=== PATIENT | male | born 1985 | race Caucasian/White ===

== ENCOUNTER 2020-02-15 10:44 | Inpatient (IN) | payer OTHER ==
--- NOTE | 2020-02-15 11:02 | BHS.RME ---
Physical/Psych/Mental Status - Behavior General Behavior: Increased activity (restlessness, agitation) Eye Contact: Normal - Cooperativeness Cooperativeness: Cooperative - Thinking Thought Processes: Tight, Logical, Goal Directed - Physical Health Problems Is patient presently having any pain?: No Does patient presently have any injuries (include location): No Does patient currently have a fever: No Is patient : No CIWA Nausea/Vomitin-No Nausea/No Vomiting Muscle Tremors: 1-None Visible, but [place] Anxiety: 4-Mod. Anxious/Guarded Agitation: 4-Moderately Restless Paroxysmal Sweats: 4-Forehead w/Sweat Beads Orientation: 0-Oriented Tacttile Disturbances: 0-None Auditory Disturbances: 0-None Visual Disturbances: 0-None Headache: 0-None Present CIWA-Ar Total Score: 13
--- NOTE | 2020-02-15 11:18 | HP ---
CIWA Score Nausea/Vomitin-No Nausea/No Vomiting Muscle Tremors: 1-None Visible, but [place] Anxiety: 4-Mod. Anxious/Guarded Agitation: 4-Moderately Restless Paroxysmal Sweats: 4-Forehead w/Sweat Beads Orientation: 0-Oriented Tacttile Disturbances: 0-None Auditory Disturbances: 0-None Visual Disturbances: 0-None Headache: 0-None Present CIWA-Ar Total Score: 13 - Admission Criteria OASAS Guidelines: Admission for Medically Managed Detox: Requires at least one of the followin. CIWA greater than 12 2. Seizures within the past 24 hours 3. Delirium tremens within the past 24 hours 4. Hallucinations within the past 24 hours 5. Acute intervention needed for co occurring medical disorder 6. Acute intervention needed for co occurring psychiatric disorder 7. Severe withdrawal that cannot be handled at a lower level of care (continued vomiting, continued diarrhea, abnormal vital signs) requiring intravenous medication and/or fluids 8. Admitting History and Physical - Admission Chief Complaint: Mr. Alaniz is a 35 yo gentleman who presents to [facility] requesting admission after a recent relapse to alcohol use. History of Present Illness: Mr. Alaniz is a 35 yo gentleman who presents to [facility] requesting admission after a recent relapse to alcohol use. He was at [facility] yesteday, given Librium but told he would not be admitted. PMH: none PSH: none Psych: depression, anxiety, ADD (Wellbutrin 300 mg QD, taken yesterday, Adderal 30 mg QD, Gabapentin 400 mg bid) SOC: lives with Joaquina Chin Mandated by court to treatment The patient was sober for 6 months and then relapsed 2 months ago. History Source: Patient Limitations to Obtaining History: No Limitations Admission [facility] Allergies/Adverse Reactions: Allergies Allergy/AdvReac Type Severity Reaction Status Date / Time Fish Containing Products Allergy Hives Verified 02/15/20 11:17 No Known Drug Allergies Allergy Verified 02/15/20 11:17 Exam Limitations: No Limitations - Ebola screening Have you traveled outside of the country in the last 21 days: No Have you been sick,other than usual withdrawal symptoms: No Do you have a fever: No - Review of Systems Constitutional: Loss of Appetite EENT: reports: Blurred Vision (has glasses, not with him today) Respiratory: reports: No Symptoms reported Cardiac: reports: No Symptoms Reported GI: reports: No Symptoms Reported : reports: No Symptoms Reported Musculoskeletal: reports: No Symptoms Reported Integumentary: reports: Other (scrapes on feet from sandles) Endocrine: reports: No Symptoms Reported Hematology: reports: No Symptoms Reported Psychiatric: reports: Anxious Patient History - Smoking Cessation Smoking history: Current every day smoker Have you smoked in the past 12 months: Yes Aproximately how many cigarettes per day: 30 Hx Chewing Tobacco Use: No Initiated information on smoking cessation: Yes 'Breaking Loose' booklet given: 02/15/20 - Substances abused Alcohol Substance route: Oral Frequency: Daily Amount used: 2 pints Vodka Age of first use: 13 Date of last use: 02/15/20 Marijuana/Hashish Substance route: Smoking Amount used: one joint Age of first use: 13 Date of last use: 02/15/20 Other Other (specify): Tylenol with Codeine Amount used: 1 Age of first use: 35 Date of last use: 02/14/20 Admission Physical Exam [facility] - Physical General Appearance: Yes: No Apparent Distress, Nourished HEENTM: Yes: EOMI, Hearing grossly Normal, Normocephalic, Normal Voice Respiratory: Yes: Lungs Clear, Normal Breath Sounds Neck: Yes: Within Normal Limits Breast: Yes: Breast Exam Deferred Cardiology: Yes: Regular Rhythm, Regular Rate Abdominal: Yes: Normal Bowel Sounds, Non Tender, Flat, Soft Back: Yes: Normal Inspection Musculoskeletal: Yes: Within Normal Limits, Gait Steady Extremities: Yes: Normal Inspection, Non-Tender Neurological: Yes: Alert, Normal Mood/Affect, Normal Response Integumentary: Yes: Other (superficial scratches bilateral feet/ankle, pt attributes to new sandles) - Diagnostic (1) Alcohol dependence with withdrawal, uncomplicated Current Visit: Yes Status: Acute (2) Nicotine dependence Current Visit: Yes Status: Acute (3) ADD (attention deficit disorder) Current Visit: Yes Status: Chronic (4) Cannabis abuse Current Visit: Yes Status: Acute Cleared for Admission [facility] - Detox or Rehab [facility] Level of Care: Medically Managed Detox Regimen/Protocol: Librium Inpatient Rehab Admission - Rehab Decision to Admit Inpatient rehab admission?: No
[2020-02-15 11:31] VITALS: BMI 24.5
[2020-02-15] MEDS ORDERED: ACETAMINOPHEN 325 MG TABLET (FP) PO PRN ×2 (11:34)
[2020-02-15] MEDS ORDERED: MENTHOL/PHENOL 1 EACH UD MM PRN (11:34)
[2020-02-15] MEDS ORDERED: MAG HYDROX/AL HYDROX/SIMETH 30 ML UNIT-DOSE CUP PO PRN (11:34)
[2020-02-15] MEDS ORDERED: BISMUTH SUBSALICYLATE 262 MG/15 ML BTL PO PRN (11:34)
[2020-02-15] MEDS ORDERED: ONDANSETRON *ODT* 4 MG TABLET SL PRN (11:34)
[2020-02-15] MEDS ORDERED: MAGNESIUM CITRATE 300 ML BOTTLE PO PRN (11:34)
[2020-02-15] MEDS ORDERED: IBUPROFEN 400 MG TABLET (FP) PO PRN (11:34)
[2020-02-15] MEDS ORDERED: MAGNESIUM HYDROX 2400MG/30ML ORAL SUSPENSION 30 ML CUP PO PRN (11:34)
[2020-02-15] MEDS ORDERED: TUBERCULIN PPD 5 TU/0.1ML VIAL ID ONE (12:30)
[2020-02-15] MEDS: chlordiazePOXIDE HCL 25 MG CAPSULE PO PRN (12:36)
[2020-02-15] MEDS: PRENATAL VITAMINS W/ FOLIC ACID TABLET (FP) PO SCH (12:38)
[2020-02-15] MEDS: NICOTINE 21 MG/24 HOURS TOPICAL PATCH TD SCH (12:38)
[2020-02-15] MEDS: NICOTINE POLACRILEX 2 MG GUM BUC PRN (12:43)
[2020-02-15] MEDS: hydrOXYzine PAMOATE 25 MG CAPSULE (FP) PO SCH ×3 (13:45→22:39)
[2020-02-15 14:54] LABS: HEMATOCRIT 41.7 % (35.4-49); HEMOGLOBIN 14.2 GM/dL (11.7-16.9); MCH 31.9 pg (25.7-33.7); MEAN CELL VOLUME 93.8 fl (80-96); MEAN PLT VOLUME 8.7 fl (7.5-11.1); PLATELET COUNT 319 K/MM3 (134-434); RBC 4.45 M/mm3 (4.00-5.60); RDW 13.8 % (11.9-15.9); WHITE BLOOD COUNT 7.9 K/mm3 (4.0-10.0)
[2020-02-15 15:10] LABS: ALBUMIN 4.1 g/dl (3.4-5.0); BILIRUBIN,TOTAL 0.3 mg/dL (0.2-1); BLOOD UREA NITROGEN 13.8 mg/dL (7-18); CREATININE 0.8 mg/dL (0.55-1.3); POTASSIUM 4.2 mmol/L (3.5-5.1); TOT PROT 7.5 g/dl (6.4-8.2)
[2020-02-15 15:36] LABS: CALCIUM 9.7 mg/dL (8.5-10.1)
--- NOTE | 2020-02-15 17:41 | EKG ---
Test Reason : Blood Pressure : / mmHG Vent. Rate : 082 BPM Atrial Rate : 082 BPM P-R Int : 124 ms QRS Dur : 108 ms QT Int : 360 ms P-R-T Axes : 052 068 062 degrees QTc Int : 420 ms NORMAL SINUS RHYTHM NORMAL ECG NO PREVIOUS ECGS AVAILABLE Confirmed by WALTER BARRAZA MD ([id number]) on 02/15/2020 5:40:44 PM Referred By: Confirmed By:WALTER BARRAZA MD
[2020-02-15] MEDS: chlordiazePOXIDE HCL 25 MG CAPSULE PO SCH ×2 (17:59→22:38)
[2020-02-15] MEDS: THIAMINE HCL 100 MG TABLET (FP) PO SCH (22:38)
[2020-02-15] MEDS: MELATONIN 5 MG TABLETS PO SCH (22:38)
[2020-02-15] MEDS: METHOCARBAMOL 500 MG TABLET PO PRN (22:39)
[2020-02-16] MEDS: chlordiazePOXIDE HCL 25 MG CAPSULE PO SCH ×4 (06:45→22:04)
[2020-02-16] MEDS: hydrOXYzine PAMOATE 25 MG CAPSULE (FP) PO SCH (06:45)
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
--- NOTE | 2020-02-16 09:54 | PN ---
S CIWA - CIWA Score Nausea/Vomitin-No Nausea/No Vomiting Muscle Tremors: 3 Anxiety: 4-Mod. Anxious/Guarded Agitation: 4-Moderately Restless Paroxysmal Sweats: 1-Minimal Palms Moist Orientation: 0-Oriented Tacttile Disturbances: 0-None Auditory Disturbances: 0-None Visual Disturbances: 0-None Headache: 0-None Present CIWA-Ar Total Score: 12 BHS Progress Note (SOAP) Subjective: Pt is a 35 y/o male admitted to detox for alcohol w/s. c/o anxiety,tremors "no sleep at all" last night, nasal congestion,on/ff-hx environmental allergy. Objective: 02/16/20 09:53 Vital Signs 02/16/20 02/16/20 02/16/20 03:30 05:00 06:35 Temperature 97.5 F L Pulse Rate 72 Respiratory 18 18 Rate Blood Pressure 110/66 O2 Sat by Pulse 95 Oximetry (%) Laboratory Tests 02/15/20 02/15/20 02/15/20 11:00 11:50 11:50 WBC 7.9 RBC 4.45 Hgb 14.2 Hct 41.7 MCV 93.8 MCH 31.9 MCHC 34.0 RDW 13.8 Plt Count 319 MPV 8.7 Sodium 138 Potassium 4.2 Chloride 107 Carbon Dioxide 23 Anion Gap 8 BUN 13.8 Creatinine 0.8 Est GFR (CKD-EPI)AfAm 132.27 Est GFR (CKD-EPI)NonAf 114.12 Random Glucose 73 L Calcium 9.7 Total Bilirubin 0.3 AST 19 ALT 35 Alkaline Phosphatase 96 Total Protein 7.5 Albumin 4.1 Syphilis Serology Non-reactive covid -19 result pending Assessment: 02/16/20 09:53 withdrawal sx Plan: continue detox increase po fluids maintain safety f/u with psych consult today.
[2020-02-16] MEDS: NICOTINE 21 MG/24 HOURS TOPICAL PATCH TD SCH (10:33)
[2020-02-16] MEDS: GABAPENTIN 400 MG CAPSULE PO SCH ×2 (10:35→22:04)
[2020-02-16] MEDS: PRENATAL VITAMINS W/ FOLIC ACID TABLET (FP) PO SCH (10:35)
[2020-02-16] MEDS: NICOTINE POLACRILEX 2 MG GUM BUC PRN ×2 (10:36→17:46)
[2020-02-16] MEDS: chlordiazePOXIDE HCL 25 MG CAPSULE PO PRN (14:16)
[2020-02-16] MEDS: hydrOXYzine PAMOATE 50 MG CAPSULE (FP) PO PRN (22:04)
[2020-02-16] MEDS: MELATONIN 5 MG TABLETS PO SCH (22:04)
[2020-02-16] MEDS: THIAMINE HCL 100 MG TABLET (FP) PO SCH (22:04)
[2020-02-16 22:43] LABS: PH,URINE 6.5 (5.0-8.0); URINE APPEARANCE CLEAR; URINE BILIRUBIN NEGATIVE (NEGATIVE); URINE COLOR YELLOW; URINE GLUCOSE (UA) NEGATIVE (NEGATIVE); URINE KETONE NEGATIVE (NEGATIVE); URINE LEUK ESTERASE NEGATIVE (NEGATIVE); URINE NITRITE NEGATIVE (NEGATIVE); URINE PROTEIN NEGATIVE (NEGATIVE); URINE UROBILINOGEN 0.2 mg/dL (0.2-1.0)
[2020-02-17] MEDS: chlordiazePOXIDE HCL 25 MG CAPSULE PO SCH ×4 (06:23→22:17)
[2020-02-17] MEDS: NICOTINE POLACRILEX 2 MG GUM BUC PRN ×3 (06:26→12:46)
[2020-02-17] MEDS: PRENATAL VITAMINS W/ FOLIC ACID TABLET (FP) PO SCH (10:07)
[2020-02-17] MEDS: GABAPENTIN 400 MG CAPSULE PO SCH ×2 (10:07→17:51)
[2020-02-17] MEDS: hydrOXYzine PAMOATE 50 MG CAPSULE (FP) PO PRN ×2 (10:08→22:17)
[2020-02-17] MEDS: NICOTINE 21 MG/24 HOURS TOPICAL PATCH TD SCH (10:08)
[2020-02-17] MEDS: METHOCARBAMOL 500 MG TABLET PO PRN ×2 (12:45→22:17)
--- NOTE | 2020-02-17 13:28 | PN ---
[facility] Progress Note Note: Psychiatric nurse practitioner note: Call received by RN Alexus stating that patient is requesting to take Gabapentin BID 400mg @0600+1800. Patient seen by Dr. Luciano and was ordered Gabapentin 400mg BID (1000+2200). Will d/c current order and order Gabapentin as requested by patient.
--- NOTE | 2020-02-17 15:03 | PN ---
S CIWA - CIWA Score Nausea/Vomitin-No Nausea/No Vomiting Muscle Tremors: None Anxiety: 6 Agitation: 3 Paroxysmal Sweats: 1-Minimal Palms Moist Orientation: 0-Oriented Tacttile Disturbances: 1-Very Mild Itch/Numbness Auditory Disturbances: 0-None Visual Disturbances: 0-None Headache: 0-None Present CIWA-Ar Total Score: 11 BHS Progress Note (SOAP) Subjective: Anxious, Restless, Interrupted Sleep. Objective: Patient A & O X 3, Observed Ambulating on Detox Unit Unassisted. In No Acute Distress. 02/17/20 15:01 Vital Signs Temperature 98.4 F 02/17/20 13:16 Pulse Rate 74 02/17/20 13:16 Respiratory Rate 18 02/17/20 13:16 Blood Pressure 142/79 02/17/20 13:16 O2 Sat by Pulse Oximetry (%) 98 02/17/20 13:16 Laboratory Tests 02/15/20 02/15/20 02/15/20 11:00 11:50 11:50 WBC 7.9 RBC 4.45 Hgb 14.2 Hct 41.7 MCV 93.8 MCH 31.9 MCHC 34.0 RDW 13.8 Plt Count 319 MPV 8.7 Sodium 138 Potassium 4.2 Chloride 107 Carbon Dioxide 23 Anion Gap 8 BUN 13.8 Creatinine 0.8 Est GFR (CKD-EPI)AfAm 132.27 Est GFR (CKD-EPI)NonAf 114.12 Random Glucose 73 L Calcium 9.7 Total Bilirubin 0.3 AST 19 ALT 35 Alkaline Phosphatase 96 Total Protein 7.5 Albumin 4.1 Urine Color Urine Appearance Urine pH Ur Specific [place] Urine Protein Urine Glucose (UA) Urine Ketones Urine Blood Urine Nitrite Urine Bilirubin Urine Urobilinogen Ur Leukocyte Esterase Syphilis Serology Non-reactive COVID-19 (DANIELA) 02/15/20 02/16/20 11:50 17:50 WBC RBC Hgb Hct MCV MCH MCHC RDW Plt Count MPV Sodium Potassium Chloride Carbon Dioxide Anion Gap BUN Creatinine Est GFR (CKD-EPI)AfAm Est GFR (CKD-EPI)NonAf Random Glucose Calcium Total Bilirubin AST ALT Alkaline Phosphatase Total Protein Albumin Urine Color Yellow Urine Appearance Clear Urine pH 6.5 Ur Specific [place] 1.018 Urine Protein Negative Urine Glucose (UA) Negative Urine Ketones Negative Urine Blood Negative Urine Nitrite Negative Urine Bilirubin Negative Urine Urobilinogen 0.2 Ur Leukocyte Esterase Negative Syphilis Serology COVID-19 (DANIELA) Not detected LABS NOTED. Assessment: 02/17/20 15:02 WITHDRAWAL SYMPTOMS. Plan: Continue Detox.
[2020-02-17] MEDS: chlordiazePOXIDE HCL 25 MG CAPSULE PO PRN (15:08)
[2020-02-17] MEDS: NICOTINE POLACRILEX 4 MG GUM BUC PRN ×2 (15:09→17:53)
[2020-02-17] MEDS: MELATONIN 5 MG TABLETS PO SCH (22:17)
[2020-02-17] MEDS: THIAMINE HCL 100 MG TABLET (FP) PO SCH (22:17)
[2020-02-17] MEDS: SUVOREXANT 10 MG TABLET PO PRN (22:17)
[2020-02-18] MEDS ORDERED: chlordiazePOXIDE HCL 10 MG CAPSULE PO PRN
[2020-02-18] MEDS: chlordiazePOXIDE HCL 10 MG CAPSULE PO SCH ×4 (06:19→22:17)
[2020-02-18] MEDS: GABAPENTIN 400 MG CAPSULE PO SCH ×2 (06:19→18:00)
[2020-02-18] MEDS: NICOTINE POLACRILEX 4 MG GUM BUC PRN ×5 (06:22→22:20)
[2020-02-18] MEDS: PRENATAL VITAMINS W/ FOLIC ACID TABLET (FP) PO SCH (10:21)
[2020-02-18] MEDS: NICOTINE 21 MG/24 HOURS TOPICAL PATCH TD SCH (10:21)
[2020-02-18] MEDS: METHOCARBAMOL 500 MG TABLET PO PRN ×2 (12:23→18:02)
--- NOTE | 2020-02-18 14:03 | PN ---
S CIWA - CIWA Score Nausea/Vomitin-Mild Nausea/No Vomiting Muscle Tremors: 2 Anxiety: 2 Agitation: 2 Paroxysmal Sweats: No Perspiration Orientation: 0-Oriented Tacttile Disturbances: 0-None Auditory Disturbances: 0-None Visual Disturbances: 1-Very Mild Sensitivity Headache: 0-None Present CIWA-Ar Total Score: 8 BHS Progress Note (SOAP) Subjective: 35 years old male admitted on 02/16/20 for alcohol withdrawal sx management treating with librium detox regiment feeling ok today social with peers in day room Objective: 02/18/20 14:02 Vital Signs - 24 hr 02/17/20 02/17/20 02/18/20 17:00 20:33 00:30 Temperature 98.3 F 97.8 F Pulse Rate 90 94 H Respiratory 18 16 18 Rate Blood Pressure 126/81 130/79 O2 Sat by Pulse 97 Oximetry (%) 02/18/20 02/18/20 02/18/20 03:30 07:00 09:10 Temperature 97.6 F 97.9 F Pulse Rate 70 96 H Respiratory 18 18 18 Rate Blood Pressure 108/64 103/61 O2 Sat by Pulse Oximetry (%) 02/18/20 11:15 Temperature Pulse Rate Respiratory Rate Blood Pressure O2 Sat by Pulse 98 Oximetry (%) Laboratory Tests 02/15/20 02/15/20 02/15/20 11:00 11:50 11:50 WBC 7.9 RBC 4.45 Hgb 14.2 Hct 41.7 MCV 93.8 MCH 31.9 MCHC 34.0 RDW 13.8 Plt Count 319 MPV 8.7 Sodium 138 Potassium 4.2 Chloride 107 Carbon Dioxide 23 Anion Gap 8 BUN 13.8 Creatinine 0.8 Est GFR (CKD-EPI)AfAm 132.27 Est GFR (CKD-EPI)NonAf 114.12 Random Glucose 73 L Calcium 9.7 Total Bilirubin 0.3 AST 19 ALT 35 Alkaline Phosphatase 96 Total Protein 7.5 Albumin 4.1 Urine Color Urine Appearance Urine pH Ur Specific [place] Urine Protein Urine Glucose (UA) Urine Ketones Urine Blood Urine Nitrite Urine Bilirubin Urine Urobilinogen Ur Leukocyte Esterase Syphilis Serology Non-reactive COVID-19 (DANIELA) 02/15/20 02/16/20 11:50 17:50 WBC RBC Hgb Hct MCV MCH MCHC RDW Plt Count MPV Sodium Potassium Chloride Carbon Dioxide Anion Gap BUN Creatinine Est GFR (CKD-EPI)AfAm Est GFR (CKD-EPI)NonAf Random Glucose Calcium Total Bilirubin AST ALT Alkaline Phosphatase Total Protein Albumin Urine Color Yellow Urine Appearance Clear Urine pH 6.5 Ur Specific [place] 1.018 Urine Protein Negative Urine Glucose (UA) Negative Urine Ketones Negative Urine Blood Negative Urine Nitrite Negative Urine Bilirubin Negative Urine Urobilinogen 0.2 Ur Leukocyte Esterase Negative Syphilis Serology COVID-19 (DANIELA) Not detected Assessment: 02/18/20 14:03 alcohol withdrawal Plan: librium regiment
[2020-02-18] MEDS: hydrOXYzine PAMOATE 50 MG CAPSULE (FP) PO PRN ×2 (14:39→22:18)
[2020-02-18] MEDS: THIAMINE HCL 100 MG TABLET (FP) PO SCH (22:17)
[2020-02-18] MEDS: SUVOREXANT 10 MG TABLET PO PRN (22:17)
[2020-02-18] MEDS: MELATONIN 5 MG TABLETS PO SCH (22:17)
[2020-02-19] MEDS: chlordiazePOXIDE HCL 10 MG CAPSULE PO SCH ×2 (07:00→17:17)
[2020-02-19] MEDS: GABAPENTIN 400 MG CAPSULE PO SCH ×2 (07:00→17:17)
[2020-02-19] MEDS: NICOTINE POLACRILEX 4 MG GUM BUC PRN ×4 (07:02→17:46)
[2020-02-19] MEDS: METHOCARBAMOL 500 MG TABLET PO PRN ×2 (07:02→21:09)
[2020-02-19] MEDS ORDERED: MASKS NR ONE (07:33)
[2020-02-19] MEDS: NICOTINE 21 MG/24 HOURS TOPICAL PATCH TD SCH (10:19)
[2020-02-19] MEDS: PRENATAL VITAMINS W/ FOLIC ACID TABLET (FP) PO SCH (10:19)
[2020-02-19] MEDS: hydrOXYzine PAMOATE 50 MG CAPSULE (FP) PO PRN ×2 (10:22→21:09)
--- NOTE | 2020-02-19 14:18 | PN ---
S CIWA - CIWA Score Nausea/Vomitin-No Nausea/No Vomiting Muscle Tremors: 2 Anxiety: 4-Mod. Anxious/Guarded Agitation: 2 Paroxysmal Sweats: 1-Minimal Palms Moist Orientation: 0-Oriented Tacttile Disturbances: 0-None Auditory Disturbances: 0-None Visual Disturbances: 0-None Headache: 0-None Present CIWA-Ar Total Score: 9 BHS Progress Note (SOAP) Subjective: Anxiety intermittent sleep Objective: 02/19/20 14:19 Vital Signs 02/19/20 02/19/20 06:20 09:40 Temperature 97.3 F L 97.4 F L Pulse Rate 88 89 Respiratory 16 183 H Rate Blood Pressure 106/73 119/67 O2 Sat by Pulse 96 98 Oximetry (%) Laboratory Tests 02/15/20 02/15/20 02/15/20 11:00 11:50 11:50 WBC 7.9 RBC 4.45 Hgb 14.2 Hct 41.7 MCV 93.8 MCH 31.9 MCHC 34.0 RDW 13.8 Plt Count 319 MPV 8.7 Sodium 138 Potassium 4.2 Chloride 107 Carbon Dioxide 23 Anion Gap 8 BUN 13.8 Creatinine 0.8 Est GFR (CKD-EPI)AfAm 132.27 Est GFR (CKD-EPI)NonAf 114.12 Random Glucose 73 L Calcium 9.7 Total Bilirubin 0.3 AST 19 ALT 35 Alkaline Phosphatase 96 Total Protein 7.5 Albumin 4.1 Urine Color Urine Appearance Urine pH Ur Specific [place] Urine Protein Urine Glucose (UA) Urine Ketones Urine Blood Urine Nitrite Urine Bilirubin Urine Urobilinogen Ur Leukocyte Esterase Syphilis Serology Non-reactive COVID-19 (DANIELA) 02/15/20 02/16/20 11:50 17:50 WBC RBC Hgb Hct MCV MCH MCHC RDW Plt Count MPV Sodium Potassium Chloride Carbon Dioxide Anion Gap BUN Creatinine Est GFR (CKD-EPI)AfAm Est GFR (CKD-EPI)NonAf Random Glucose Calcium Total Bilirubin AST ALT Alkaline Phosphatase Total Protein Albumin Urine Color Yellow Urine Appearance Clear Urine pH 6.5 Ur Specific [place] 1.018 Urine Protein Negative Urine Glucose (UA) Negative Urine Ketones Negative Urine Blood Negative Urine Nitrite Negative Urine Bilirubin Negative Urine Urobilinogen 0.2 Ur Leukocyte Esterase Negative Syphilis Serology COVID-19 (DANIELA) Not detected Assessment: 02/19/20 14:19 improved w/s Plan: cont detox increase po fluids d/c pt in [facility]
[2020-02-19] MEDS: MELATONIN 5 MG TABLETS PO SCH (21:09)
[2020-02-19] MEDS: THIAMINE HCL 100 MG TABLET (FP) PO SCH (21:09)
[2020-02-20] MEDS ORDERED: chlordiazePOXIDE HCL 10 MG CAPSULE PO ONE (05:00)
[2020-02-20] MEDS: GABAPENTIN 400 MG CAPSULE PO SCH (06:31)
[2020-02-20] MEDS: NICOTINE POLACRILEX 4 MG GUM BUC PRN (06:32)
[2020-02-20 06:48] VITALS: BP 111/77; PULSE 85; TEMP 97.7
[2020-02-20] MEDS: PRENATAL VITAMINS W/ FOLIC ACID TABLET (FP) PO SCH (09:03)
[2020-02-20] MEDS: NICOTINE 21 MG/24 HOURS TOPICAL PATCH TD SCH (09:04)
--- NOTE | 2020-02-20 09:27 | PN ---
[facility] Progress Note Note: Patient is discharged today. Scripts for 30 days supply of medications(Wellbutrin XL 300 mg/day, Gabapentin 400 mg/bid) are electronically transmitted to [facility], [address] [place] [id number]
--- NOTE | 2020-02-20 11:17 | DS ---
[facility] Detox Discharge Summary Admission Date: 02/15/20 Discharge Date: 02/20/20 - History Present History: Alcohol Dependence, Cannabis Dependence Pertinent Past History: ADD MDD Anxiety disorder - Physical Exam Results Vital Signs: Vital Signs Temperature 97.7 F 02/20/20 06:20 Pulse Rate 85 02/20/20 06:20 Respiratory Rate 18 02/20/20 06:20 Blood Pressure 111/77 02/20/20 06:20 O2 Sat by Pulse Oximetry (%) 98 02/20/20 06:20 Aert o x 3 nad oob ambulating with steady gait cardiac:s1 s2,rrr lungs:ctab abdomen:soft, +bs,nt,flat extremities;no edema,skin intact Pertinent Admission Physical Exam Findings: Laboratory Tests 02/15/20 02/15/20 02/15/20 11:00 11:50 11:50 WBC 7.9 RBC 4.45 Hgb 14.2 Hct 41.7 MCV 93.8 MCH 31.9 MCHC 34.0 RDW 13.8 Plt Count 319 MPV 8.7 Sodium 138 Potassium 4.2 Chloride 107 Carbon Dioxide 23 Anion Gap 8 BUN 13.8 Creatinine 0.8 Est GFR (CKD-EPI)AfAm 132.27 Est GFR (CKD-EPI)NonAf 114.12 Random Glucose 73 L Calcium 9.7 Total Bilirubin 0.3 AST 19 ALT 35 Alkaline Phosphatase 96 Total Protein 7.5 Albumin 4.1 Urine Color Urine Appearance Urine pH Ur Specific [place] Urine Protein Urine Glucose (UA) Urine Ketones Urine Blood Urine Nitrite Urine Bilirubin Urine Urobilinogen Ur Leukocyte Esterase Syphilis Serology Non-reactive COVID-19 (DANIELA) 02/15/20 02/16/20 11:50 17:50 WBC RBC Hgb Hct MCV MCH MCHC RDW Plt Count MPV Sodium Potassium Chloride Carbon Dioxide Anion Gap BUN Creatinine Est GFR (CKD-EPI)AfAm Est GFR (CKD-EPI)NonAf Random Glucose Calcium Total Bilirubin AST ALT Alkaline Phosphatase Total Protein Albumin Urine Color Yellow Urine Appearance Clear Urine pH 6.5 Ur Specific [place] 1.018 Urine Protein Negative Urine Glucose (UA) Negative Urine Ketones Negative Urine Blood Negative Urine Nitrite Negative Urine Bilirubin Negative Urine Urobilinogen 0.2 Ur Leukocyte Esterase Negative Syphilis Serology COVID-19 (DANIELA) Not detected covid-19 not detected - Treatment Hospital Course: Detox Protocol Followed, Detoxed Safely, Responded well, Discharged Condition Good, Rehab Referral Accepted Patient has Accepted a Rehab Referral to: [facility] OPD - Medication Discharge Medications: Ambulatory Orders Bupropion HCl [Wellbutrin Xl -] 300 mg PO DAILY #30 tab.sr.[id number] 02/20/20 Gabapentin 400 mg PO BID #60 cap 02/20/20 - Diagnosis (1) Alcohol dependence with withdrawal, uncomplicated Status: Acute (2) Cannabis abuse Status: Acute (3) Nicotine dependence Status: Acute Qualifiers: Nicotine product type: cigarettes Substance use status: in withdrawal Qualified Code(s): F17.213 - Nicotine dependence, cigarettes, with withdrawal - AMA Did Patient Leave Against Medical Advice: No
== END 2020-02-20 09:10 | disposition home or self-care (01) | DRG 775 ==
LOC: YASAS 10:44 → Y5N DETOX 11:31
PROVIDERS: ADMIT Allergy & Immunology; ATTEND Allergy & Immunology
PROC: HZ2ZZZZ Detoxification Services for Substance Abuse Treatment (ICD-10-PCS; principal; 2020-02-15)
DX: F10.230 Alcohol dependence with withdrawal, uncomplicated (principal); F12.20 Cannabis dependence, uncomplicated; F17.213 Nicotine dependence, cigarettes, with withdrawal; F32.9 Major depressive disorder, single episode, unspecified; F41.9 Anxiety disorder, unspecified; F19.24 Other psychoactive substance dependence with psychoactive substance-induced mood disorder; F19.282 Other psychoactive substance dependence with psychoactive substance-induced sleep disorder; Z62.810 Personal history of physical and sexual abuse in childhood; Z91.013 Allergy to seafood
CPT/HCPCS: 36415; 80053; 81003; 85027; 86780; 93005; 93010; Q0162; U0003

== ENCOUNTER 2020-03-18 09:59 | Inpatient (IN) | payer OTHER ==
--- NOTE | 2020-03-18 10:20 | BHS.RME ---
Substance Use & Tx History - Substance Use History Alcohol Substance amount: 3 pints vodka Frequency of use: Daily Substance route: Oral Date of Last Use: 03/17/20 Nicotine Substance amount: 1 pack Frequency of use: Daily Substance route: Smoking Date of Last Use: 03/18/20 Physical/Psych/Mental Status - Behavior General Behavior: Increased activity (restlessness, agitation) Eye Contact: Normal - Thinking Thought Processes: Tight, Logical, Goal Directed - Physical Health Problems Is patient presently having any pain?: No Does patient presently have any injuries (include location): No Does patient currently have a fever: No Is patient : No CIWA Nausea/Vomitin-Mild Nausea/No Vomiting Muscle Tremors: 5 Anxiety: 4-Mod. Anxious/Guarded Agitation: 4-Moderately Restless Paroxysmal Sweats: 4-Forehead w/Sweat Beads Orientation: 1-Uncertain about Date Tacttile Disturbances: 0-None Auditory Disturbances: 0-None Visual Disturbances: 0-None Headache: 5-Severe CIWA-Ar Total Score: 24
--- NOTE | 2020-03-18 10:36 | BHS.RME ---
Substance Use & Tx History - Substance Use History Alcohol Substance amount: 3 pint vodka Frequency of use: Daily Substance route: Oral Date of Last Use: 03/17/20 Nicotine Substance amount: 1.5 packs Frequency of use: Daily Substance route: Smoking Date of Last Use: 03/18/20 Marijuana/Hashish Substance amount: 1 joint Frequency of use: Daily Substance route: Smoking Date of Last Use: 03/17/20 Cocaine- Powder Substance amount: 1 cocaine Frequency of use: Less than 3 times per week Substance route: Inhalation (ex: sniffing or snorting) Date of Last Use: 03/16/20 - Last Treatment Date of last treatment: 02/14-02/20/20 Treatment type: Substance Use Disorder (HELEN) Where was last treatment: Detox Physical/Psych/Mental Status - Behavior General Behavior: Increased activity (restlessness, agitation) Eye Contact: Normal - Cooperativeness Cooperativeness: Cooperative - Thinking Thought Processes: Tight, Logical, Goal Directed - Physical Health Problems Is patient presently having any pain?: No Does patient presently have any injuries (include location): No Does patient currently have a fever: No Is patient : No CIWA Nausea/Vomitin-Mild Nausea/No Vomiting Muscle Tremors: 5 Anxiety: 4-Mod. Anxious/Guarded Agitation: 4-Moderately Restless Paroxysmal Sweats: 4-Forehead w/Sweat Beads Orientation: 1-Uncertain about Date Tacttile Disturbances: 0-None Auditory Disturbances: 0-None Visual Disturbances: 0-None Headache: 5-Severe CIWA-Ar Total Score: 24
--- NOTE | 2020-03-18 10:45 | HP ---
CIWA Score Nausea/Vomitin-Mild Nausea/No Vomiting Muscle Tremors: 5 Anxiety: 4-Mod. Anxious/Guarded Agitation: 4-Moderately Restless Paroxysmal Sweats: 4-Forehead w/Sweat Beads Orientation: 1-Uncertain about Date Tacttile Disturbances: 0-None Auditory Disturbances: 0-None Visual Disturbances: 0-None Headache: 5-Severe CIWA-Ar Total Score: 24 - Admission Criteria OASAS Guidelines: Admission for Medically Managed Detox: Requires at least one of the followin. CIWA greater than 12 2. Seizures within the past 24 hours 3. Delirium tremens within the past 24 hours 4. Hallucinations within the past 24 hours 5. Acute intervention needed for co occurring medical disorder 6. Acute intervention needed for co occurring psychiatric disorder 7. Severe withdrawal that cannot be handled at a lower level of care (continued vomiting, continued diarrhea, abnormal vital signs) requiring intravenous medication and/or fluids 8. Admitting History and Physical - Admission Chief Complaint: " i need to go back to detox." History of Present Illness: 35 year old male with history of alcohol dependence with withdrawals. He was just here from 02/14-02/20/20 completed detox and was abstinent until 1 week ago and relapsed. He was at [facility] yesterday and got sutures for a laceration of Left 3rd phalanx. Substance Use & Tx History - Substance Use History Alcohol Substance amount: 3 pint vodka Frequency of use: Daily Substance route: Oral Date of Last Use: 03/17/20 Nicotine Substance amount: 1.5 packs Frequency of use: Daily Substance route: Smoking Date of Last Use: 03/18/20 Marijuana/Hashish Substance amount: 1 joint Frequency of use: Daily Substance route: Smoking Date of Last Use: 03/17/20 Cocaine- Powder Substance amount: 1 cocaine Frequency of use: Less than 3 times per week Substance route: Inhalation (ex: sniffing or snorting) Date of Last Use: 03/16/20 - Last Treatment Date of last treatment: 02/14-02/20/20 Treatment type: Substance Use Disorder (HELEN) Where was last treatment: Detox PMH: None Psurg: None Psych: Depression, Anxiety Disorder. Lives with GF but states she has thrown him out. No legal issues pending. He meets criteria for detox as he has multiple failures, now has poor recovery environment. He has agreed to complete detox again and then go to rehab for the remainder of treatment. History Source: Patient Limitations to Obtaining History: No Limitations - Past Medical History Psych: Yes: Anxiety, Depression - Past Surgical History Past Surgical History: Yes: None - Smoking History Smoking history: Current every day smoker Have you smoked in the past 12 months: Yes Aproximately how many cigarettes per day: 30 - Alcohol/Substance Use Hx Alcohol Use: Yes Number of Drinks Daily: 20 History of Substance Use: reports: Cocaine, Marijuana - Social History Usual Living Arrangement: Yes: Alone Do you think of yourself as: Straight/Heterosexual Occupation: unemployed, sales History of Recent Travel: No Admission [facility] Allergies/Adverse Reactions: Allergies Allergy/AdvReac Type Severity Reaction Status Date / Time Fish Containing Products Allergy Hives Verified 02/15/20 11:17 No Known Drug Allergies Allergy Verified 02/15/20 11:17 Exam Limitations: No Limitations - Ebola screening Have you traveled outside of the country in the last 21 days: No Have you had contact with anyone from an Ebola affected area: No Have you been sick,other than usual withdrawal symptoms: No Do you have a fever: No - Review of Systems Constitutional: Chills, Diaphoresis EENT: reports: No Symptoms Reported Respiratory: reports: No Symptoms reported Cardiac: reports: No Symptoms Reported GI: reports: No Symptoms Reported : reports: No Symptoms Reported Musculoskeletal: reports: No Symptoms Reported Integumentary: reports: No Symptoms Reported Neuro: reports: Headache Endocrine: reports: No Symptoms Reported Hematology: reports: No Symptoms Reported Psychiatric: reports: Judgement Intact, Mood/Affect Appropiate, Orientated x3, Agitated, Anxious Other Systems: Reviewed and Negative Patient History - Patient Medical History Hx Asthma: No Hx Chronic Obstructive Pulmonary Disease (COPD): No Hx Cardiac Disorders: No Hx Hypertension: No Hx Seizures: No Hx Diabetes: No Hx Gastrointestinal Disorders: No Hx Genitourinary Disorders: No Hx Sexually Transmitted Disorders: No Hx Renal Disease (ESRD): No Hx Depression: Yes Hx Suicide Attempt: No Hx Schizophrenia: No - Patient Surgical History Past Surgical History: No Hx Neurologic Surgery: No Hx Cataract Extraction: No Hx Cardiac Surgery: No Hx Lung Surgery: No Hx Breast Surgery: No Hx Breast Biopsy: No Hx Abdominal Surgery: No Hx Appendectomy: No Hx Cholecystectomy: No Hx Genitourinary Surgery: No Hx Section: No Hx Orthopedic Surgery: No Anesthesia Reaction: No - PPD History Previous Implant?: Yes Documented Results: Negative w/proof Implanted On Prior [facility] Admission?: Yes Date: 02/17/20 Results: negative PPD to be Administered?: No - Smoking Cessation Smoking history: Current every day smoker Have you smoked in the past 12 months: Yes Aproximately how many cigarettes per day: 30 Hx Chewing Tobacco Use: No Initiated information on smoking cessation: Yes 'Breaking Loose' booklet given: 03/18/20 - Substances abused Alcohol Substance route: Oral Frequency: Daily Amount used: 3 pints vodka Age of first use: 13 Date of last use: 03/17/20 Cocaine Substance route: Inhalation Frequency: 1-3 times last 30 days Amount used: 1 bag Age of first use: 13 Date of last use: 03/16/20 Marijuana/Hashish Substance route: Smoking Frequency: Daily Amount used: 1 joint Age of first use: 13 Date of last use: 03/17/20 Admission Physical Exam S - Physical General Appearance: Yes: Moderate Distress, Thin, Tremorous, Irritable, Sweating, Anxious HEENTM: Yes: EOMI, Hearing grossly Normal, Normal ENT Inspection, Normocephalic, Normal Voice, IONA, Pharynx Normal, Tm's normal Respiratory: Yes: Chest Non-Tender, Lungs Clear, Normal Breath Sounds, No Respiratory Distress, No Accessory Muscle Use Neck: Yes: No masses,lesions,Nodules, Supple, Trachea in good position Breast: Yes: Within Normal Limits Cardiology: Yes: Regular Rhythm, S1, S2, Tachycardia Abdominal: Yes: Normal Bowel Sounds, Non Tender, Flat, Soft Genitourinary: Yes: Within Normal Limits Back: Yes: Normal Inspection Musculoskeletal: Yes: full range of Motion, Gait Steady, Pelvis Stable Extremities: Yes: Normal Capillary Refill, Normal Inspection, Normal Range of Motion, Non-Tender Neurological: Yes: securities consultant II-XII NML intact, Fully Oriented, Alert, Motor Strength 5/5, Normal Mood/Affect, Normal Response Integumentary: Yes: Normal Color, Dry, Warm Lymphatic: Yes: Within Normal Limits - Diagnostic (1) Alcohol dependence with withdrawal, uncomplicated Current Visit: Yes Status: Acute (2) Cannabis abuse Current Visit: Yes Status: Acute (3) Nicotine dependence Current Visit: Yes Status: Acute Qualifiers: Nicotine product type: cigarettes Substance use status: in withdrawal Qualified Code(s): F17.213 - Nicotine dependence, cigarettes, with withdrawal (4) ADD (attention deficit disorder) Current Visit: Yes Status: Chronic (5) Anxiety disorder Current Visit: Yes Status: Chronic (6) MDD (major depressive disorder) Current Visit: Yes Status: Chronic Cleared for Admission S - Detox or Rehab [facility] Level of Care: Medically Managed Detox Regimen/Protocol: Librium Claeared for Rehab Admission: No Screened but not Admitted - Documentation of Visit Screened but not Admitted: No Breathalyzer - Breathalyzer Breathalyzer: 0.135 Urine Drug Screen - Test Device Lot number: [id number] Expiration date: 03/26/22 - Control Is test valid?: Yes - Results Drug screen NEGATIVE: No Urine drug screen results: THC-Marijuana, LORE-Cocaine, AMP-Amphetamines Inpatient Rehab Admission - Rehab Decision to Admit Inpatient rehab admission?: No
[2020-03-18] MEDS ORDERED: ACETAMINOPHEN 325 MG TABLET (FP) PO PRN ×2 (10:52)
[2020-03-18] MEDS ORDERED: IBUPROFEN 400 MG TABLET (FP) PO PRN (10:52)
[2020-03-18] MEDS ORDERED: MAGNESIUM CITRATE 300 ML BOTTLE PO PRN (10:52)
[2020-03-18] MEDS ORDERED: BISMUTH SUBSALICYLATE 262 MG/15 ML BTL PO PRN (10:52)
[2020-03-18] MEDS ORDERED: MAGNESIUM HYDROX 2400MG/30ML ORAL SUSPENSION 30 ML CUP PO PRN (10:52)
[2020-03-18] MEDS ORDERED: MAG HYDROX/AL HYDROX/SIMETH 30 ML UNIT-DOSE CUP PO PRN (10:52)
[2020-03-18] MEDS ORDERED: MENTHOL/PHENOL 1 EACH UD MM PRN (10:52)
[2020-03-18] MEDS ORDERED: ONDANSETRON *ODT* 4 MG TABLET SL ONE (10:52)
[2020-03-18 11:43] VITALS: BMI 24.1
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
[2020-03-18] MEDS: METHOCARBAMOL 500 MG TABLET PO PRN (12:38)
[2020-03-18] MEDS: chlordiazePOXIDE HCL 25 MG CAPSULE PO SCH ×3 (12:39→22:02)
[2020-03-18] MEDS: PRENATAL VITAMINS W/ FOLIC ACID TABLET (FP) PO SCH (12:39)
[2020-03-18] MEDS: NICOTINE 7 MG/24 HOURS TOPICAL PATCH TD SCH (12:39)
[2020-03-18] MEDS: NICOTINE POLACRILEX 2 MG GUM BUC PRN (12:44)
[2020-03-18] MEDS: BACITRACIN 0.9 GM PACKET TP SCH (13:36)
[2020-03-18] MEDS: hydrOXYzine PAMOATE 25 MG CAPSULE (FP) PO SCH ×3 (13:41→22:02)
[2020-03-18] MEDS ORDERED: GABAPENTIN 400 MG CAPSULE PO ONE (13:53)
[2020-03-18] MEDS ORDERED: GABAPENTIN 400 MG CAPSULE PO SCH (14:00)
[2020-03-18 16:41] LABS: HEMATOCRIT 40.1 % (35.4-49); HEMOGLOBIN 13.5 GM/dL (11.7-16.9); MCH 31.7 pg (25.7-33.7); MCHC 33.7 g/dl (32.0-35.9); MEAN CELL VOLUME 93.9 fl (80-96); MEAN PLT VOLUME 8.1 fl (7.5-11.1); PLATELET COUNT 348 K/MM3 (134-434); RBC 4.27 M/mm3 (4.00-5.60); RDW 13.4 % (11.9-15.9)
[2020-03-18 16:49] LABS: ALBUMIN 3.8 g/dl (3.4-5.0); BILIRUBIN,TOTAL 0.3 mg/dL (0.2-1); BLOOD UREA NITROGEN 9.7 mg/dL (7-18); CALCIUM 8.8 mg/dL (8.5-10.1); CREATININE 0.8 mg/dL (0.55-1.3); POTASSIUM 3.9 mmol/L (3.5-5.1); TOT PROT 7.5 g/dl (6.4-8.2)
[2020-03-18] MEDS: MELATONIN 5 MG TABLETS PO SCH (22:02)
[2020-03-18] MEDS: GABAPENTIN 400 MG CAPSULE PO SCH (22:02)
[2020-03-18] MEDS: THIAMINE HCL 100 MG TABLET (FP) PO SCH (22:02)
[2020-03-19] MEDS: chlordiazePOXIDE HCL 25 MG CAPSULE PO SCH ×4 (05:16→22:19)
[2020-03-19] MEDS: hydrOXYzine PAMOATE 25 MG CAPSULE (FP) PO SCH ×5 (05:16→22:19)
--- NOTE | 2020-03-19 08:37 | PN ---
S CIWA - CIWA Score Nausea/Vomitin Muscle Tremors: 3 Anxiety: 3 Agitation: 2 Paroxysmal Sweats: No Perspiration Orientation: 0-Oriented Tacttile Disturbances: 1-Very Mild Itch/Numbness Auditory Disturbances: 0-None Visual Disturbances: 0-None Headache: 2-Mild CIWA-Ar Total Score: 13 S Progress Note (SOAP) Subjective: alert,irritable,anxious,interrupted sleep,tremor,aching pain in the body and back Objective: 03/19/20 08:35 Vital Signs Temperature 97.5 F L 03/19/20 05:12 Pulse Rate 97 H 03/19/20 05:12 Respiratory Rate 18 03/19/20 05:12 Blood Pressure 146/71 03/19/20 05:12 O2 Sat by Pulse Oximetry (%) 97 03/19/20 05:12 03/19/20 08:36 Laboratory Last Values WBC 10.0 K/mm3 (4.0-10.0) 03/18/20 10:45 RBC 4.27 M/mm3 (4.00-5.60) 03/18/20 10:45 Hgb 13.5 GM/dL (11.7-16.9) 03/18/20 10:45 Hct 40.1 % (35.4-49) 03/18/20 10:45 MCV 93.9 fl (80-96) 03/18/20 10:45 MCH 31.7 pg (25.7-33.7) 03/18/20 10:45 MCHC 33.7 g/dl (32.0-35.9) 03/18/20 10:45 RDW 13.4 % (11.9-15.9) 03/18/20 10:45 Plt Count 348 K/MM3 (134-434) 03/18/20 10:45 MPV 8.1 fl (7.5-11.1) 03/18/20 10:45 Sodium 140 mmol/L (136-145) 03/18/20 10:45 Potassium 3.9 mmol/L (3.5-5.1) 03/18/20 10:45 Chloride 106 mmol/L (98-107) 03/18/20 10:45 Carbon Dioxide 24 mmol/L (21-32) 03/18/20 10:45 Anion Gap 9 MMOL/L (8-16) 03/18/20 10:45 BUN 9.7 mg/dL (7-18) 03/18/20 10:45 Creatinine 0.8 mg/dL (0.55-1.3) 03/18/20 10:45 Est GFR (CKD-EPI)AfAm 132.27 03/18/20 10:45 Est GFR (CKD-EPI)NonAf 114.12 03/18/20 10:45 Random Glucose 97 mg/dL (74-106) 03/18/20 10:45 Calcium 8.8 mg/dL (8.5-10.1) 03/18/20 10:45 Total Bilirubin 0.3 mg/dL (0.2-1) 03/18/20 10:45 AST 29 U/L (15-37) 03/18/20 10:45 ALT 34 U/L (13-61) 03/18/20 10:45 Alkaline Phosphatase 93 U/L (45-117) 03/18/20 10:45 Total Protein 7.5 g/dl (6.4-8.2) 03/18/20 10:45 Albumin 3.8 g/dl (3.4-5.0) 03/18/20 10:45 Syphilis Serology Non-reactive (NONREACTIVE) 03/18/20 10:45 COVID-19 (DANIELA) Not detected (Not Detected) 03/18/20 12:15 Assessment: 03/19/20 08:36 withdrawal symptom Plan: continue detox librium regimen,encourage oral fluid
[2020-03-19] MEDS: GABAPENTIN 400 MG CAPSULE PO SCH ×2 (10:29→22:19)
[2020-03-19] MEDS: PRENATAL VITAMINS W/ FOLIC ACID TABLET (FP) PO SCH (10:29)
[2020-03-19] MEDS: BACITRACIN 0.9 GM PACKET TP SCH (10:30)
[2020-03-19] MEDS: NICOTINE 7 MG/24 HOURS TOPICAL PATCH TD SCH (10:30)
[2020-03-19] MEDS: NICOTINE POLACRILEX 2 MG GUM BUC PRN ×4 (10:32→20:15)
[2020-03-19] MEDS: chlordiazePOXIDE HCL 25 MG CAPSULE PO PRN (12:31)
[2020-03-19] MEDS: NICOTINE 21 MG/24 HOURS TOPICAL PATCH TD SCH (13:14)
[2020-03-19] MEDS: METHOCARBAMOL 500 MG TABLET PO PRN ×2 (17:12→22:19)
[2020-03-19] MEDS: MELATONIN 5 MG TABLETS PO SCH (22:19)
[2020-03-19] MEDS: THIAMINE HCL 100 MG TABLET (FP) PO SCH (22:19)
[2020-03-20] MEDS: chlordiazePOXIDE HCL 25 MG CAPSULE PO SCH ×4 (05:11→22:31)
[2020-03-20] MEDS: hydrOXYzine PAMOATE 25 MG CAPSULE (FP) PO SCH ×2 (05:12→11:11)
[2020-03-20] MEDS: chlordiazePOXIDE HCL 25 MG CAPSULE PO PRN (08:49)
[2020-03-20] MEDS: NICOTINE POLACRILEX 2 MG GUM BUC PRN ×2 (08:51→12:37)
--- NOTE | 2020-03-20 10:14 | PN ---
[facility] CIWA - CIWA Score Nausea/Vomitin-Mild Nausea/No Vomiting Muscle Tremors: 2 Anxiety: 2 Agitation: 2 Paroxysmal Sweats: No Perspiration Orientation: 0-Oriented Tacttile Disturbances: 1-Very Mild Itch/Numbness Auditory Disturbances: 0-None Visual Disturbances: 0-None Headache: 1-Very Mild CIWA-Ar Total Score: 9 S Progress Note (SOAP) Subjective: alert,irritable,anxious,interrupted sleep,nausea,aching pain Objective: 03/20/20 10:13 Vital Signs Temperature 98.3 F 03/20/20 08:30 Pulse Rate 99 H 03/20/20 08:30 Respiratory Rate 18 03/20/20 08:30 Blood Pressure 130/85 03/20/20 08:30 O2 Sat by Pulse Oximetry (%) 96 03/20/20 08:30 Assessment: 03/20/20 10:13 withdrawal symptom Plan: continue detox librium regimen,laceration left middle fingers clean ,movement of finger in flexion no limitation,psychiatric reevaluation for medication
[2020-03-20] MEDS: NICOTINE 21 MG/24 HOURS TOPICAL PATCH TD SCH (11:11)
[2020-03-20] MEDS: PRENATAL VITAMINS W/ FOLIC ACID TABLET (FP) PO SCH (11:11)
[2020-03-20] MEDS: GABAPENTIN 400 MG CAPSULE PO SCH ×2 (11:11→22:30)
[2020-03-20] MEDS: BACITRACIN 0.9 GM PACKET TP SCH (11:11)
--- NOTE | 2020-03-20 12:07 | PN ---
[facility] Progress Note Note: Patient reports feeling very anxious despite taking Gabapentin 400 mg/bid, Wellbutrin XL 300 mg/sky and Vistaril 25 mg po Q 4hrs prn. Discussed with patient increasing Vistaril dosage to 50 mg po Q 4 hrs prn
[2020-03-20] MEDS: hydrOXYzine PAMOATE 50 MG CAPSULE (FP) PO PRN (13:42)
[2020-03-20] MEDS: METHOCARBAMOL 500 MG TABLET PO PRN (17:05)
[2020-03-20] MEDS: MELATONIN 5 MG TABLETS PO SCH (22:31)
[2020-03-20] MEDS: THIAMINE HCL 100 MG TABLET (FP) PO SCH (22:31)
[2020-03-21] MEDS ORDERED: chlordiazePOXIDE HCL 10 MG CAPSULE PO PRN
[2020-03-21] MEDS: chlordiazePOXIDE HCL 10 MG CAPSULE PO SCH ×4 (05:20→23:44)
[2020-03-21] MEDS: NICOTINE POLACRILEX 2 MG GUM BUC PRN ×3 (08:15→17:19)
--- NOTE | 2020-03-21 09:57 | PN ---
S CIWA - CIWA Score Nausea/Vomitin-No Nausea/No Vomiting Muscle Tremors: 1-None Visible, but Cameron Anxiety: 1-Mildly Anxious Agitation: 1-Slight > Activity Paroxysmal Sweats: No Perspiration Orientation: 0-Oriented Tacttile Disturbances: 1-Very Mild Itch/Numbness Auditory Disturbances: 0-None Visual Disturbances: 0-None Headache: 1-Very Mild CIWA-Ar Total Score: 5 B[facility] Progress Note (SOAP) Subjective: alert,irritable,anxious,interrupted sleep,aching pain in the body Objective: 03/21/20 09:54 Vital Signs Temperature 97.1 F L 03/21/20 08:45 Pulse Rate 94 H 03/21/20 08:45 Respiratory Rate 17 03/21/20 08:45 Blood Pressure 124/77 03/21/20 08:45 O2 Sat by Pulse Oximetry (%) 100 03/21/20 08:45 Assessment: 03/21/20 09:54 withdrawal symptom but less Plan: continue detox librium regimen,DR Luciano reevaluation note appreciated,discharge in am,follow up with out patient program [facility]
[2020-03-21] MEDS: NICOTINE 21 MG/24 HOURS TOPICAL PATCH TD SCH (10:31)
[2020-03-21] MEDS: BACITRACIN 0.9 GM PACKET TP SCH (10:31)
[2020-03-21] MEDS: PRENATAL VITAMINS W/ FOLIC ACID TABLET (FP) PO SCH (10:32)
[2020-03-21] MEDS: GABAPENTIN 400 MG CAPSULE PO SCH ×2 (10:32→23:00)
[2020-03-21] MEDS: METHOCARBAMOL 500 MG TABLET PO PRN ×2 (12:46→19:03)
[2020-03-21] MEDS: hydrOXYzine PAMOATE 50 MG CAPSULE (FP) PO PRN ×2 (12:46→17:57)
--- NOTE | 2020-03-21 14:53 | PN ---
[facility] Progress Note Note: Patient is scheduled for discharge tomorrow. Scripts for 30 days supply of medications(Gabapentin 400 mg/bid, Wellbutrin XL 300 mg/day) will be electronically transmitted to [facility], [address] [place] [id number]
[2020-03-21] MEDS: THIAMINE HCL 100 MG TABLET (FP) PO SCH (23:00)
[2020-03-21] MEDS: MELATONIN 5 MG TABLETS PO SCH (23:00)
[2020-03-22] MEDS ORDERED: chlordiazePOXIDE HCL 10 MG CAPSULE PO SCH (05:00)
[2020-03-22 06:05] VITALS: BP 118/69; PULSE 77; TEMP 97.1
[2020-03-22] MEDS: NICOTINE POLACRILEX 2 MG GUM BUC PRN (06:39)
[2020-03-22] MEDS: hydrOXYzine PAMOATE 50 MG CAPSULE (FP) PO PRN (06:41)
[2020-03-22] MEDS: METHOCARBAMOL 500 MG TABLET PO PRN (07:50)
[2020-03-22] MEDS: GABAPENTIN 400 MG CAPSULE PO SCH (09:03)
[2020-03-22] MEDS: BACITRACIN 0.9 GM PACKET TP SCH (09:03)
[2020-03-22] MEDS: NICOTINE 21 MG/24 HOURS TOPICAL PATCH TD SCH (09:04)
[2020-03-22] MEDS: PRENATAL VITAMINS W/ FOLIC ACID TABLET (FP) PO SCH (09:04)
--- NOTE | 2020-03-22 11:16 | PN ---
[facility] CIWA - CIWA Score Nausea/Vomitin-No Nausea/No Vomiting Muscle Tremors: None Anxiety: 1-Mildly Anxious Agitation: 0-Normal Activity Paroxysmal Sweats: No Perspiration Orientation: 0-Oriented Tacttile Disturbances: 0-None Auditory Disturbances: 0-None Visual Disturbances: 0-None Headache: 0-None Present CIWA-Ar Total Score: 1 S Progress Note (SOAP) Subjective: alert,no complaint Objective: 03/22/20 11:14 Vital Signs Temperature 97.1 F L 03/22/20 05:17 Pulse Rate 77 03/22/20 05:17 Respiratory Rate 16 03/22/20 05:17 Blood Pressure 118/69 03/22/20 05:17 O2 Sat by Pulse Oximetry (%) 99 03/22/20 05:17 Assessment: 03/22/20 11:15 no withdrawal symptom Plan: stable for discharge today,follow up with after care program as arrangement
--- NOTE | 2020-03-22 11:21 | DS ---
[facility] Detox Discharge Summary Admission Date: 03/18/20 Discharge Date: 03/22/20 - History Present History: Alcohol Dependence, Cannabis Dependence, Cocaine Dependence Additional Comments: alert,oriented x 3 ambulation on the unit lung cleat on auscultation abdomen soft,no distension,no pain stable for discharge today follow up with after care program as arrangement declined rehab total time of discharge 30 minutes Pertinent Past History: adhd anxiety depression old laceration of left middle finger - Physical Exam Results Vital Signs: Vital Signs Temperature 97.1 F L 03/22/20 05:17 Pulse Rate 77 03/22/20 05:17 Respiratory Rate 16 03/22/20 05:17 Blood Pressure 118/69 03/22/20 05:17 O2 Sat by Pulse Oximetry (%) 99 03/22/20 05:17 Pertinent Admission Physical Exam Findings: withdrawal signs and symptom Laboratory Last Values WBC 10.0 K/mm3 (4.0-10.0) 03/18/20 10:45 RBC 4.27 M/mm3 (4.00-5.60) 03/18/20 10:45 Hgb 13.5 GM/dL (11.7-16.9) 03/18/20 10:45 Hct 40.1 % (35.4-49) 03/18/20 10:45 MCV 93.9 fl (80-96) 03/18/20 10:45 MCH 31.7 pg (25.7-33.7) 03/18/20 10:45 MCHC 33.7 g/dl (32.0-35.9) 03/18/20 10:45 RDW 13.4 % (11.9-15.9) 03/18/20 10:45 Plt Count 348 K/MM3 (134-434) 03/18/20 10:45 MPV 8.1 fl (7.5-11.1) 03/18/20 10:45 Sodium 140 mmol/L (136-145) 03/18/20 10:45 Potassium 3.9 mmol/L (3.5-5.1) 03/18/20 10:45 Chloride 106 mmol/L (98-107) 03/18/20 10:45 Carbon Dioxide 24 mmol/L (21-32) 03/18/20 10:45 Anion Gap 9 MMOL/L (8-16) 03/18/20 10:45 BUN 9.7 mg/dL (7-18) 03/18/20 10:45 Creatinine 0.8 mg/dL (0.55-1.3) 03/18/20 10:45 Est GFR (CKD-EPI)AfAm 132.27 03/18/20 10:45 Est GFR (CKD-EPI)NonAf 114.12 03/18/20 10:45 Random Glucose 97 mg/dL (74-106) 03/18/20 10:45 Calcium 8.8 mg/dL (8.5-10.1) 03/18/20 10:45 Total Bilirubin 0.3 mg/dL (0.2-1) 03/18/20 10:45 AST 29 U/L (15-37) 03/18/20 10:45 ALT 34 U/L (13-61) 03/18/20 10:45 Alkaline Phosphatase 93 U/L (45-117) 03/18/20 10:45 Total Protein 7.5 g/dl (6.4-8.2) 03/18/20 10:45 Albumin 3.8 g/dl (3.4-5.0) 03/18/20 10:45 Syphilis Serology Non-reactive (NONREACTIVE) 03/18/20 10:45 COVID-19 (DANIELA) Not detected (Not Detected) 03/18/20 12:15 Vital Signs Temperature 97.1 F L 03/22/20 05:17 Pulse Rate 77 03/22/20 05:17 Respiratory Rate 16 03/22/20 05:17 Blood Pressure 118/69 03/22/20 05:17 O2 Sat by Pulse Oximetry (%) 99 03/22/20 05:17 - Treatment Hospital Course: Detox Protocol Followed, Detoxed Safely, Responded well, Discharged Condition Good Patient has Accepted a Rehab Referral to: [facility] - Medication Discharge Medications: Ambulatory Orders Bupropion HCl [Wellbutrin Xl -] 300 mg PO DAILY #30 tab.sr.24h 02/20/20 Dextroamphetamine/Amphetamine [Adderall Xr 30 mg Capsule] 30 mg PO DAILY 03/18/20 Bupropion HCl [Wellbutrin Xl -] 300 mg PO DAILY #30 tab.sr.24h 03/21/20 Gabapentin 400 mg PO BID #60 cap 03/21/20 - Diagnosis (1) Alcohol dependence with withdrawal, uncomplicated Status: Acute (2) Cannabis abuse Status: Acute (3) Nicotine dependence Status: Acute Qualifiers: Nicotine product type: cigarettes Substance use status: in withdrawal Qualified Code(s): F17.213 - Nicotine dependence, cigarettes, with withdrawal (4) ADD (attention deficit disorder) Status: Chronic (5) Anxiety disorder Status: Chronic (6) MDD (major depressive disorder) Status: Chronic - AMA Did Patient Leave Against Medical Advice: No
[2020-03-23] MEDS ORDERED: chlordiazePOXIDE HCL 10 MG CAPSULE PO ONE (05:00)
== END 2020-03-22 09:27 | disposition home or self-care (01) | DRG 775 ==
LOC: YASAS 09:59 → Y6N 11:58
PROVIDERS: ADMIT Allergy & Immunology; ATTEND Allergy & Immunology
PROC: HZ2ZZZZ Detoxification Services for Substance Abuse Treatment (ICD-10-PCS; principal; 2020-03-18)
DX: F10.230 Alcohol dependence with withdrawal, uncomplicated (principal); F12.10 Cannabis abuse, uncomplicated; F17.213 Nicotine dependence, cigarettes, with withdrawal; F90.9 Attention-deficit hyperactivity disorder, unspecified type; F41.9 Anxiety disorder, unspecified; F33.9 Major depressive disorder, recurrent, unspecified; F19.24 Other psychoactive substance dependence with psychoactive substance-induced mood disorder; F19.282 Other psychoactive substance dependence with psychoactive substance-induced sleep disorder; R00.0 Tachycardia, unspecified; Z91.013 Allergy to seafood; Z62.810 Personal history of physical and sexual abuse in childhood
CPT/HCPCS: 36415; 80053; 85027; 86780; Q0162; U0003

== ENCOUNTER 2020-08-26 10:52 | Inpatient (IN) | payer OTHER ==
[2020-08-26] MEDS ORDERED: MAG HYDROX/AL HYDROX/SIMETH 30 ML UNIT-DOSE CUP PO PRN (12:24)
[2020-08-26] MEDS ORDERED: MAGNESIUM HYDROX 2400MG/30ML ORAL SUSPENSION 30 ML CUP PO PRN (12:24)
[2020-08-26] MEDS ORDERED: MENTHOL/PHENOL 1 EACH UD MM PRN (12:24)
[2020-08-26] MEDS ORDERED: BISMUTH SUBSALICYLATE 262 MG/15 ML BTL PO PRN (12:24)
[2020-08-26] MEDS ORDERED: ACETAMINOPHEN 325 MG TABLET (FP) PO PRN ×2 (12:24)
[2020-08-26] MEDS ORDERED: MAGNESIUM CITRATE 300 ML BOTTLE PO PRN (12:24)
[2020-08-26] MEDS ORDERED: ONDANSETRON *ODT* 4 MG TABLET SL PRN (12:24)
[2020-08-26 12:26] VITALS: BMI 24.3
[2020-08-26] MEDS ORDERED: chlordiazePOXIDE HCL 25 MG CAPSULE PO ONE (12:31)
[2020-08-26] MEDS: hydrOXYzine PAMOATE 25 MG CAPSULE (FP) PO SCH ×3 (13:03→22:29)
[2020-08-26] MEDS: PRENATAL VITAMINS W/ FOLIC ACID TABLET (FP) PO SCH (13:03)
[2020-08-26] MEDS: chlordiazePOXIDE HCL 25 MG CAPSULE PO SCH ×3 (13:03→22:26)
[2020-08-26] MEDS: METHOCARBAMOL 500 MG TABLET PO PRN (13:06)
[2020-08-26] MEDS: IBUPROFEN 400 MG TABLET (FP) PO PRN (17:43)
[2020-08-26 18:45] LABS: CALCIUM 8.8 mg/dL (8.5-10.1)
[2020-08-26 18:46] LABS: ALBUMIN 4.4 g/dl (3.4-5.0); BLOOD UREA NITROGEN 8.7 mg/dL (7-18); HEMATOCRIT 43.2 % (35.4-49); HEMOGLOBIN 14.7 GM/dL (11.7-16.9); MCH 33.1 pg (25.7-33.7); MEAN CELL VOLUME 97.3 fl (80-96); MEAN PLT VOLUME 7.1 fl (7.5-11.1); PLATELET COUNT 293 K/MM3 (134-434); RBC 4.44 M/mm3 (4.00-5.60); RDW 14.8 % (11.9-15.9); WHITE BLOOD COUNT 6.3 K/mm3 (4.0-10.0)
[2020-08-26 18:49] LABS: CREATININE 0.8 mg/dL (0.55-1.3)
[2020-08-26 18:51] LABS: BILIRUBIN,TOTAL 0.3 mg/dL (0.2-1)
[2020-08-26] MEDS: THIAMINE HCL 100 MG TABLET (FP) PO SCH (22:26)
[2020-08-26] MEDS: MELATONIN 5 MG TABLETS PO SCH (22:28)
[2020-08-27] MEDS: chlordiazePOXIDE HCL 25 MG CAPSULE PO SCH ×4 (06:47→22:04)
[2020-08-27] MEDS: hydrOXYzine PAMOATE 25 MG CAPSULE (FP) PO SCH ×5 (06:48→22:05)
[2020-08-27] MEDS: NICOTINE 14 MG/24 HOURS TOPICAL PATCH TD SCH (10:13)
[2020-08-27] MEDS: PRENATAL VITAMINS W/ FOLIC ACID TABLET (FP) PO SCH (10:13)
[2020-08-27] MEDS: GABAPENTIN 400 MG CAPSULE PO SCH ×2 (10:13→22:04)
[2020-08-27] MEDS: chlordiazePOXIDE HCL 25 MG CAPSULE PO PRN (12:42)
[2020-08-27] MEDS: NICOTINE POLACRILEX 2 MG GUM BUC PRN (20:35)
[2020-08-27] MEDS: MELATONIN 5 MG TABLETS PO SCH (22:04)
[2020-08-27] MEDS: THIAMINE HCL 100 MG TABLET (FP) PO SCH (22:04)
[2020-08-27] MEDS: SUVOREXANT 10 MG TABLET PO PRN (22:05)
[2020-08-28] MEDS: chlordiazePOXIDE HCL 25 MG CAPSULE PO SCH ×4 (05:09→22:23)
[2020-08-28] MEDS: hydrOXYzine PAMOATE 25 MG CAPSULE (FP) PO SCH ×5 (05:09→22:23)
[2020-08-28] MEDS: GABAPENTIN 400 MG CAPSULE PO SCH ×2 (10:02→22:24)
[2020-08-28] MEDS: PRENATAL VITAMINS W/ FOLIC ACID TABLET (FP) PO SCH (10:03)
[2020-08-28] MEDS: NICOTINE 14 MG/24 HOURS TOPICAL PATCH TD SCH (10:03)
[2020-08-28] MEDS: chlordiazePOXIDE HCL 25 MG CAPSULE PO PRN ×2 (11:58→19:09)
[2020-08-28] MEDS: NICOTINE POLACRILEX 2 MG GUM BUC PRN ×3 (15:09→19:17)
[2020-08-28] MEDS: METHOCARBAMOL 500 MG TABLET PO PRN (17:36)
[2020-08-28] MEDS: IBUPROFEN 400 MG TABLET (FP) PO PRN (19:09)
[2020-08-28] MEDS: MELATONIN 5 MG TABLETS PO SCH (22:23)
[2020-08-28] MEDS: THIAMINE HCL 100 MG TABLET (FP) PO SCH (22:23)
[2020-08-28] MEDS: SUVOREXANT 10 MG TABLET PO PRN (22:24)
[2020-08-29] MEDS: hydrOXYzine PAMOATE 25 MG CAPSULE (FP) PO SCH ×5 (06:54→22:03)
[2020-08-29] MEDS: chlordiazePOXIDE HCL 10 MG CAPSULE PO SCH ×4 (06:54→22:01)
[2020-08-29] MEDS: NICOTINE POLACRILEX 2 MG GUM BUC PRN (08:55)
[2020-08-29] MEDS: GABAPENTIN 400 MG CAPSULE PO SCH ×2 (10:01→22:01)
[2020-08-29] MEDS: NICOTINE 14 MG/24 HOURS TOPICAL PATCH TD SCH (10:03)
[2020-08-29] MEDS: PRENATAL VITAMINS W/ FOLIC ACID TABLET (FP) PO SCH (10:03)
[2020-08-29] MEDS: chlordiazePOXIDE HCL 10 MG CAPSULE PO PRN ×2 (13:53→18:37)
[2020-08-29] MEDS: IBUPROFEN 400 MG TABLET (FP) PO PRN (19:29)
[2020-08-29] MEDS: SUVOREXANT 10 MG TABLET PO PRN (22:01)
[2020-08-29] MEDS: THIAMINE HCL 100 MG TABLET (FP) PO SCH (22:01)
[2020-08-29] MEDS: MELATONIN 5 MG TABLETS PO SCH (22:04)
[2020-08-30] MEDS ORDERED: chlordiazePOXIDE HCL 10 MG CAPSULE PO SCH (05:00)
[2020-08-30] MEDS: hydrOXYzine PAMOATE 25 MG CAPSULE (FP) PO SCH ×2 (05:15→09:02)
[2020-08-30 09:02] VITALS: BP 143/88; PULSE 115; TEMP 97.5
[2020-08-30] MEDS: NICOTINE 14 MG/24 HOURS TOPICAL PATCH TD SCH (09:02)
[2020-08-30] MEDS: GABAPENTIN 400 MG CAPSULE PO SCH (09:02)
[2020-08-30] MEDS: PRENATAL VITAMINS W/ FOLIC ACID TABLET (FP) PO SCH (09:02)
[2020-08-31] MEDS ORDERED: chlordiazePOXIDE HCL 10 MG CAPSULE PO ONE (05:00)
== END 2020-08-30 09:48 | disposition home or self-care (01) | DRG 774 ==
LOC: YASAS 10:52 → Y6N 12:09
PROVIDERS: ADMIT Allergy & Immunology; ATTEND Allergy & Immunology
PROC: HZ2ZZZZ Detoxification Services for Substance Abuse Treatment (ICD-10-PCS; principal; 2020-08-26)
DX: F10.230 Alcohol dependence with withdrawal, uncomplicated (principal); F14.10 Cocaine abuse, uncomplicated; F10.220 Alcohol dependence with intoxication, uncomplicated; F12.10 Cannabis abuse, uncomplicated; F17.210 Nicotine dependence, cigarettes, uncomplicated; F19.280 Other psychoactive substance dependence with psychoactive substance-induced anxiety disorder; F19.282 Other psychoactive substance dependence with psychoactive substance-induced sleep disorder; F19.24 Other psychoactive substance dependence with psychoactive substance-induced mood disorder; F32.9 Major depressive disorder, single episode, unspecified; F41.9 Anxiety disorder, unspecified; F90.9 Attention-deficit hyperactivity disorder, unspecified type; R74.01 Elevation of levels of liver transaminase levels; Z56.0 Unemployment, unspecified; Z91.013 Allergy to seafood
CPT/HCPCS: 36415; 80053; 85027; 86780; C9803; U0003

== ENCOUNTER 2022-11-21 17:45 | Inpatient (IN) | payer OTHER ==
[2022-11-21 20:13] VITALS: BMI 24.3
[2022-11-21] MEDS ORDERED: NALOXONE HCL (KLOXXADO) 8 MG SPRAY NS PRN (21:10)
[2022-11-21] MEDS ORDERED: POLYETHYLENE GLYCOL (HEALTHYLAX) 3350 17 GM PACKET PO PRN (21:10)
[2022-11-21] MEDS ORDERED: ACETAMINOPHEN 325 MG TABLET (FP) PO PRN (21:10)
[2022-11-21] MEDS ORDERED: LOPERAMIDE HCL 2 MG CAPSULE PO PRN (21:10)
[2022-11-21] MEDS ORDERED: BENZONATATE 200 MG CAPSULE PO PRN (21:10)
[2022-11-21] MEDS ORDERED: MAGNESIUM HYDROX 2400MG/30ML ORAL SUSPENSION 30 ML CUP PO PRN (21:10)
[2022-11-21] MEDS ORDERED: NALOXONE HCL 0.4 MG/ML VIAL IM PRN (21:10)
[2022-11-21] MEDS ORDERED: BENZOCAINE/MENTHOL (CHLORASEPTIC ) LOZENGE MM PRN (21:10)
[2022-11-21] MEDS ORDERED: guaiFENesin 600 MG TABLET.ER (FP) PO PRN (21:10)
[2022-11-21] MEDS ORDERED: IBUPROFEN 400 MG TABLET (FP) PO PRN (21:10)
[2022-11-21] MEDS ORDERED: IBUPROFEN 600 MG TABLET (FP) PO PRN (21:10)
[2022-11-21] MEDS ORDERED: MAG HYDROX/AL HYDROX/SIMETH 30 ML UNIT-DOSE CUP PO PRN (21:10)
[2022-11-21] MEDS ORDERED: ONDANSETRON *ODT* 4 MG TABLET SL PRN (21:10)
[2022-11-21] MEDS ORDERED: chlordiazePOXIDE HCL 25 MG CAPSULE PO PRN (21:10)
[2022-11-21] MEDS ORDERED: DICYCLOMINE HCL 10 MG CAPSULE PO PRN (21:10)
[2022-11-21] MEDS ORDERED: BISMUTH SUBSALICYLATE 524 MG/30 ML PO PRN (21:10)
[2022-11-21] MEDS ORDERED: MELATONIN 5 MG TABLETS PO SCH (22:00)
[2022-11-21] MEDS: THIAMINE HCL 100 MG TABLET (FP) PO SCH (22:21)
[2022-11-21] MEDS: chlordiazePOXIDE HCL 25 MG CAPSULE PO SCH (22:21)
[2022-11-21] MEDS: NICOTINE POLACRILEX 2 MG GUM BUC PRN (22:46)
[2022-11-22] MEDS: chlordiazePOXIDE HCL 25 MG CAPSULE PO SCH ×4 (05:17→22:35)
[2022-11-22] MEDS: NICOTINE POLACRILEX 2 MG GUM BUC PRN (05:20)
[2022-11-22] MEDS: PRENATAL VITAMINS W/ FOLIC ACID TABLET (FP) PO SCH (10:18)
[2022-11-22] MEDS: NICOTINE 21 MG/24 HOURS TOPICAL PATCH TD SCH (10:19)
[2022-11-22] MEDS: GABAPENTIN 400 MG CAPSULE PO SCH ×2 (10:19→22:35)
[2022-11-22 11:46] LABS: HEMATOCRIT 35.7 % (35.4-49); HEMOGLOBIN 12.9 GM/dL (11.7-16.9); MCHC 36.1 g/dl (32.0-35.9); MEAN CELL VOLUME 91.4 fl (80-96); MEAN PLT VOLUME 7.6 fl (7.5-11.1); PLATELET COUNT 391 10^3/uL (134-434); RDW 13.5 % (11.9-15.9); WHITE BLOOD COUNT 5.1 K/mm3 (4.0-10.0)
[2022-11-22] MEDS: NICOTINE 10 MG CARTRIDGE (INHALER) IH PRN ×2 (11:58→17:15)
[2022-11-22 12:01] LABS: ALBUMIN 3.2 g/dl (3.4-5.0); BLOOD UREA NITROGEN 8.6 mg/dL (7-18); CALCIUM 9.3 mg/dL (8.5-10.1)
[2022-11-22 12:04] LABS: CREATININE 0.8 mg/dL (0.55-1.3)
[2022-11-22 12:05] LABS: BILIRUBIN,TOTAL 0.4 mg/dL (0.2-1); TOT PROT 6.6 g/dl (6.4-8.2)
[2022-11-22] MEDS: METHOCARBAMOL 500 MG TABLET PO PRN (14:06)
[2022-11-22] MEDS: hydrOXYzine PAMOATE 25 MG CAPSULE (FP) PO PRN (14:06)
[2022-11-22] MEDS: MELATONIN 5 MG TABLETS PO SCH (22:34)
[2022-11-22] MEDS: THIAMINE HCL 100 MG TABLET (FP) PO SCH (22:35)
[2022-11-23] MEDS: chlordiazePOXIDE HCL 25 MG CAPSULE PO SCH ×4 (05:54→22:15)
[2022-11-23] MEDS: NICOTINE 10 MG CARTRIDGE (INHALER) IH PRN ×3 (09:10→22:23)
[2022-11-23] MEDS: PRENATAL VITAMINS W/ FOLIC ACID TABLET (FP) PO SCH (10:05)
[2022-11-23] MEDS: GABAPENTIN 400 MG CAPSULE PO SCH ×2 (10:05→22:15)
[2022-11-23] MEDS: NICOTINE 21 MG/24 HOURS TOPICAL PATCH TD SCH (10:06)
[2022-11-23] MEDS: NICOTINE POLACRILEX 2 MG GUM BUC PRN (10:45)
[2022-11-23] MEDS: hydrOXYzine PAMOATE 25 MG CAPSULE (FP) PO PRN (10:45)
[2022-11-23] MEDS: METHOCARBAMOL 500 MG TABLET PO PRN ×2 (10:45→18:11)
[2022-11-23] MEDS: THIAMINE HCL 100 MG TABLET (FP) PO SCH (22:15)
[2022-11-23] MEDS: SUVOREXANT 10 MG TABLET PO PRN (22:17)
[2022-11-23] MEDS: MELATONIN 5 MG TABLETS PO SCH (22:18)
[2022-11-24] MEDS ORDERED: chlordiazePOXIDE HCL 10 MG CAPSULE PO PRN
[2022-11-24] MEDS: chlordiazePOXIDE HCL 10 MG CAPSULE PO SCH ×4 (05:01→22:19)
[2022-11-24] MEDS: METHOCARBAMOL 500 MG TABLET PO PRN ×2 (05:03→17:11)
[2022-11-24] MEDS: NICOTINE 10 MG CARTRIDGE (INHALER) IH PRN ×3 (08:35→20:39)
[2022-11-24] MEDS: NICOTINE 21 MG/24 HOURS TOPICAL PATCH TD SCH (10:10)
[2022-11-24] MEDS: PRENATAL VITAMINS W/ FOLIC ACID TABLET (FP) PO SCH (10:11)
[2022-11-24] MEDS: GABAPENTIN 400 MG CAPSULE PO SCH ×2 (10:11→22:19)
[2022-11-24] MEDS: hydrOXYzine PAMOATE 25 MG CAPSULE (FP) PO PRN (12:01)
[2022-11-24] MEDS: NICOTINE POLACRILEX 2 MG GUM BUC PRN ×2 (12:02→19:49)
[2022-11-24] MEDS: THIAMINE HCL 100 MG TABLET (FP) PO SCH (22:19)
[2022-11-24] MEDS: SUVOREXANT 10 MG TABLET PO PRN (22:20)
[2022-11-24] MEDS: MELATONIN 5 MG TABLETS PO SCH (22:53)
[2022-11-25] MEDS ORDERED: chlordiazePOXIDE HCL 10 MG CAPSULE PO SCH (05:00)
[2022-11-25] MEDS: METHOCARBAMOL 500 MG TABLET PO PRN (05:18)
[2022-11-25] MEDS: NICOTINE 10 MG CARTRIDGE (INHALER) IH PRN (07:29)
[2022-11-25] MEDS: GABAPENTIN 400 MG CAPSULE PO SCH (09:00)
[2022-11-25] MEDS: PRENATAL VITAMINS W/ FOLIC ACID TABLET (FP) PO SCH (09:00)
[2022-11-25] MEDS: NICOTINE 21 MG/24 HOURS TOPICAL PATCH TD SCH (09:00)
[2022-11-25 09:14] VITALS: BP 118/76; PULSE 110; RESP 18; TEMP 97.3
[2022-11-26] MEDS ORDERED: chlordiazePOXIDE HCL 10 MG CAPSULE PO ONE (05:00)
== END 2022-11-25 09:10 | disposition home or self-care (01) | DRG 774 ==
LOC: YASAS 17:45 → Y6N 21:50
PROVIDERS: ADMIT Allergy & Immunology; ATTEND Surgery
PROC: HZ2ZZZZ Detoxification Services for Substance Abuse Treatment (ICD-10-PCS; principal; 2022-11-21)
DX: F10.230 Alcohol dependence with withdrawal, uncomplicated (principal); F14.20 Cocaine dependence, uncomplicated; F15.10 Other stimulant abuse, uncomplicated; F12.20 Cannabis dependence, uncomplicated; F17.210 Nicotine dependence, cigarettes, uncomplicated; F19.282 Other psychoactive substance dependence with psychoactive substance-induced sleep disorder; F19.280 Other psychoactive substance dependence with psychoactive substance-induced anxiety disorder; F19.24 Other psychoactive substance dependence with psychoactive substance-induced mood disorder; F90.9 Attention-deficit hyperactivity disorder, unspecified type; Z62.810 Personal history of physical and sexual abuse in childhood
CPT/HCPCS: 36415; 80053; 85027; 86593; 86780; 93005; 93010; C9803-CS; U0003; U0005

== ENCOUNTER 2023-02-06 14:27 | Inpatient (IN) | payer OTHER ==
[2023-02-06 15:04] VITALS: BMI 23.3
[2023-02-06] MEDS ORDERED: NALOXONE HCL 0.4 MG/ML VIAL IM PRN (17:09)
[2023-02-06] MEDS ORDERED: BISMUTH SUBSALICYLATE 524 MG/30 ML PO PRN (17:09)
[2023-02-06] MEDS ORDERED: BENZONATATE 200 MG CAPSULE PO PRN (17:09)
[2023-02-06] MEDS ORDERED: DICYCLOMINE HCL 10 MG CAPSULE PO PRN (17:09)
[2023-02-06] MEDS ORDERED: IBUPROFEN 400 MG TABLET (FP) PO PRN (17:09)
[2023-02-06] MEDS ORDERED: ACETAMINOPHEN 325 MG TABLET (FP) PO PRN (17:09)
[2023-02-06] MEDS ORDERED: chlordiazePOXIDE HCL 25 MG CAPSULE PO PRN (17:09)
[2023-02-06] MEDS ORDERED: MAGNESIUM HYDROX 2400MG/30ML ORAL SUSPENSION 30 ML CUP PO PRN (17:09)
[2023-02-06] MEDS ORDERED: MAG HYDROX/AL HYDROX/SIMETH 30 ML UNIT-DOSE CUP PO PRN (17:09)
[2023-02-06] MEDS ORDERED: LOPERAMIDE HCL 2 MG CAPSULE PO PRN (17:09)
[2023-02-06] MEDS ORDERED: POLYETHYLENE GLYCOL (HEALTHYLAX) 3350 17 GM PACKET PO PRN (17:09)
[2023-02-06] MEDS ORDERED: guaiFENesin 600 MG TABLET.ER (FP) PO PRN (17:09)
[2023-02-06] MEDS ORDERED: IBUPROFEN 600 MG TABLET (FP) PO PRN (17:09)
[2023-02-06] MEDS ORDERED: NALOXONE HCL (KLOXXADO) 8 MG SPRAY NS PRN (17:09)
[2023-02-06] MEDS ORDERED: ONDANSETRON *ODT* 4 MG TABLET SL PRN (17:09)
[2023-02-06] MEDS ORDERED: NICOTINE 10 MG CARTRIDGE (INHALER) IH PRN (17:09)
[2023-02-06] MEDS ORDERED: BENZOCAINE/MENTHOL (CHLORASEPTIC ) LOZENGE MM PRN (17:09)
[2023-02-06] MEDS ORDERED: chlordiazePOXIDE HCL 25 MG CAPSULE ONE (17:39)
[2023-02-06] MEDS: chlordiazePOXIDE HCL 25 MG CAPSULE PO SCH ×2 (17:43→23:33)
[2023-02-06] MEDS ORDERED: MELATONIN 5 MG TABLETS PO SCH (22:00)
[2023-02-06] MEDS: THIAMINE HCL 100 MG TABLET (FP) PO SCH (23:32)
[2023-02-06] MEDS: METHOCARBAMOL 500 MG TABLET PO PRN (23:32)
[2023-02-07] MEDS: chlordiazePOXIDE HCL 25 MG CAPSULE PO SCH ×4 (06:02→22:44)
[2023-02-07] MEDS: PRENATAL VITAMINS W/ FOLIC ACID TABLET (FP) PO SCH (10:49)
[2023-02-07] MEDS: NICOTINE 21 MG/24 HOURS TOPICAL PATCH TD SCH (10:49)
[2023-02-07] MEDS: GABAPENTIN 400 MG CAPSULE PO SCH ×2 (11:06→22:43)
[2023-02-07] MEDS ORDERED: SUVOREXANT 10 MG TABLET PO PRN (22:00)
[2023-02-07] MEDS: METHOCARBAMOL 500 MG TABLET PO PRN (22:43)
[2023-02-07] MEDS: THIAMINE HCL 100 MG TABLET (FP) PO SCH (22:43)
[2023-02-08] MEDS: chlordiazePOXIDE HCL 25 MG CAPSULE PO SCH ×4 (05:33→22:35)
[2023-02-08] MEDS: PRENATAL VITAMINS W/ FOLIC ACID TABLET (FP) PO SCH (10:24)
[2023-02-08] MEDS: GABAPENTIN 400 MG CAPSULE PO SCH ×2 (10:24→22:35)
[2023-02-08] MEDS: NICOTINE 21 MG/24 HOURS TOPICAL PATCH TD SCH (10:25)
[2023-02-08] MEDS: THIAMINE HCL 100 MG TABLET (FP) PO SCH (22:35)
[2023-02-08] MEDS: METHOCARBAMOL 500 MG TABLET PO PRN (22:37)
[2023-02-09] MEDS ORDERED: chlordiazePOXIDE HCL 10 MG CAPSULE PO PRN
[2023-02-09] MEDS: chlordiazePOXIDE HCL 10 MG CAPSULE PO SCH ×4 (05:18→22:27)
[2023-02-09] MEDS: PRENATAL VITAMINS W/ FOLIC ACID TABLET (FP) PO SCH (10:06)
[2023-02-09] MEDS: NICOTINE 21 MG/24 HOURS TOPICAL PATCH TD SCH (10:07)
[2023-02-09] MEDS: GABAPENTIN 400 MG CAPSULE PO SCH ×2 (10:07→22:25)
[2023-02-09 12:05] LABS: POTASSIUM 4.4 mmol/L (3.5-5.1)
[2023-02-09 12:06] LABS: HEMATOCRIT 41.9 % (35.4-49); HEMOGLOBIN 13.8 GM/dL (11.7-16.9); MCH 31.5 pg (25.7-33.7); MCHC 32.9 g/dl (32.0-35.9); MEAN CELL VOLUME 95.9 fl (80-96); MEAN PLT VOLUME 7.6 fl (7.5-11.1); PLATELET COUNT 425 10^3/uL (134-434); RBC 4.37 M/mm3 (4.00-5.60); WHITE BLOOD COUNT 7.8 K/mm3 (4.0-10.0)
[2023-02-09 12:08] LABS: ALBUMIN 3.2 g/dl (3.4-5.0); CALCIUM 9.6 mg/dL (8.5-10.1)
[2023-02-09 12:09] LABS: BLOOD UREA NITROGEN 11.9 mg/dL (7-18)
[2023-02-09 12:12] LABS: CREATININE 0.9 mg/dL (0.55-1.3)
[2023-02-09 12:13] LABS: TOT PROT 6.7 g/dl (6.4-8.2)
[2023-02-09 12:14] LABS: BILIRUBIN,TOTAL 0.2 mg/dL (0.2-1)
[2023-02-09] MEDS: SUVOREXANT 10 MG TABLET PO PRN (22:25)
[2023-02-09] MEDS: THIAMINE HCL 100 MG TABLET (FP) PO SCH (22:25)
[2023-02-09] MEDS: METHOCARBAMOL 500 MG TABLET PO PRN (22:26)
[2023-02-10] MEDS: chlordiazePOXIDE HCL 10 MG CAPSULE PO SCH ×2 (05:36→17:07)
[2023-02-10] MEDS: PRENATAL VITAMINS W/ FOLIC ACID TABLET (FP) PO SCH (09:58)
[2023-02-10] MEDS: GABAPENTIN 400 MG CAPSULE PO SCH ×2 (09:58→21:40)
[2023-02-10] MEDS: NICOTINE 21 MG/24 HOURS TOPICAL PATCH TD SCH (09:59)
[2023-02-10] MEDS ORDERED: hydrOXYzine PAMOATE 25 MG CAPSULE (FP) PO PRN (12:41)
[2023-02-10] MEDS: THIAMINE HCL 100 MG TABLET (FP) PO SCH (21:40)
[2023-02-10] MEDS: METHOCARBAMOL 500 MG TABLET PO PRN (21:40)
[2023-02-10] MEDS: SUVOREXANT 10 MG TABLET PO PRN (21:41)
[2023-02-11] MEDS ORDERED: chlordiazePOXIDE HCL 10 MG CAPSULE PO ONE (05:00)
[2023-02-11 06:32] VITALS: BP 124/76; PULSE 86; RESP 16; TEMP 97.3
[2023-02-11] MEDS: GABAPENTIN 400 MG CAPSULE PO SCH (09:04)
[2023-02-11] MEDS: PRENATAL VITAMINS W/ FOLIC ACID TABLET (FP) PO SCH (09:04)
[2023-02-11] MEDS: NICOTINE 21 MG/24 HOURS TOPICAL PATCH TD SCH (10:30)
== END 2023-02-11 09:06 | disposition home or self-care (01) | DRG 774 ==
LOC: YASAS 14:27 → Y3N 17:33
PROVIDERS: ADMIT Allergy & Immunology; ATTEND Surgery
PROC: HZ2ZZZZ Detoxification Services for Substance Abuse Treatment (ICD-10-PCS; principal; 2023-02-06)
DX: F10.230 Alcohol dependence with withdrawal, uncomplicated (principal); F14.20 Cocaine dependence, uncomplicated; F17.210 Nicotine dependence, cigarettes, uncomplicated; F19.282 Other psychoactive substance dependence with psychoactive substance-induced sleep disorder; F19.280 Other psychoactive substance dependence with psychoactive substance-induced anxiety disorder; F19.24 Other psychoactive substance dependence with psychoactive substance-induced mood disorder; F32.9 Major depressive disorder, single episode, unspecified; F41.9 Anxiety disorder, unspecified; F90.9 Attention-deficit hyperactivity disorder, unspecified type; I10 Essential (primary) hypertension
CPT/HCPCS: 36415; 80053; 85027; 87635